=== PATIENT | female | born 1990 | race Caucasian/White ===

== ENCOUNTER 2023-08-27 09:42 | Emergency (ER) | payer MEDICAID, OTHER ==
[~2023-08-27] VITALS: Ht 170.2 cm; Wt 124.2 kg
[~2023-08-27 09:42] MED LIST: ACET-3385 PO; ASPI-1444 PO; ATOR40TA71 PO; DEXA2 PO; LEVE500T8 PO; LEVO125 PO; MECL-226 PO; METO50 PO; ONDA4TAB96 SL
[2023-08-27] MEDS ORDERED: VECURONIUM BROMIDE 10 MG/VIAL IV ONE (09:43)
[2023-08-27] MEDS ORDERED: ETOMIDATE 2 MG/ML 10 ML VIAL IV ONE (09:43)
[2023-08-27 09:52] VITALS: TEMP 98
[2023-08-27] MEDS: DEXAMETHASONE SOD PHOS 4 MG/ML 5 ML VIAL IVP ONE (10:43)
[2023-08-27] MEDS: OXYGEN THERAPY IH SCH (10:43)
[2023-08-27] MEDS: LevETIRAcetam 1,000 MG in DEXTROSE 5%-WATER 100 ML IV ONE (10:49)
[2023-08-27] MEDS ORDERED: IOHEXOL 350 MG/ML 100 ML VIAL ONE (10:57)
[2023-08-27] MEDS ORDERED: SODIUM CHLORIDE 0.9% 100 ML ONE (10:57)
[2023-08-27] MEDS ORDERED: ROCURONIUM BROMIDE 10 MG/ML 5 ML VIAL ONE (11:20)
[2023-08-27] MEDS ORDERED: PROPOFOL 1000 MG/ISO-OSM 100 ML ONE (11:30)
[2023-08-27 11:50] VITALS: PULSE 88; RESP 16; O2SAT 95
[2023-08-27 12:00] VITALS: PULSE 88; RESP 16; O2SAT 95
[2023-08-27 12:14] LABS: APPEARANCE,URINE CLEAR (CLEAR); BILIRUBIN,URINE NEGATIVE (NEGATIVE); COLOR,URINE LIGHT YELLOW (YELLOW); GLUCOSE, URINE (UA) NEGATIVE (NEGATIVE); KETONES,URINE NEGATIVE (NEGATIVE); LEUKOCYTE ESTERASE ,URINE NEGATIVE (NEGATIVE); NITRATE,URINE NEGATIVE (NEGATIVE); OCCULT BLOOD,URINE NEGATIVE (NEGATIVE); PROTEIN,URINE NEGATIVE (NEGATIVE); SPECIFIC GRAVITIY, URINE 1.026 (1.003-1.030); UROBILINOGEN,URINE <=1.0 mg/dL (<=1.0)
[2023-08-27] MEDS: PROPOFOL 1000 MG/ISO-OSM 100 ML IV PRN (12:14)
[2023-08-27 12:21] LABS: ALCOHOL, URINE DRUG SCREEN NEGATIVE (NEGATIVE); AMPHET/METH SCREEN,URINE NEGATIVE (NEGATIVE); BARBITURATE SCREEN, URINE NEGATIVE (NEGATIVE); BENZODIAZEPINES SCREEN,URINE POSITIVE (NEGATIVE); CANNABINOID SCREEN,URINE NEGATIVE (NEGATIVE); COCAINE SCREEN,URINE NEGATIVE (NEGATIVE); METHADONE SCREEN, URINE NEGATIVE (NEGATIVE); OPIATE SCREEN,URINE NEGATIVE (NEGATIVE); PHENCYCLIDINE SCREEN,URINE NEGATIVE (NEGATIVE)
[2023-08-27 12:22] LABS: BACTERIA,URINE None Seen /HPF (None Seen); RBC,URINE None Seen /HPF (0-2); WBC,URINE None Seen /HPF (0-5)
[2023-08-27] MEDS: MANNITOL 25%-12.5 GM/50 ML VIAL IVP ONE (12:32)
[2023-08-27 12:42] LABS: BASOPHILS % (AUTO) 0.2 % (0.0-2.0); EOSINOPHILS % (AUTO) 0 % (1.0-6.0); HEMOGLOBIN 14.4 g/dL (12.0-16.0); LYMPHOCYTES # (AUTO) 1.8 K/uL (1.0-4.8); LYMPHOCYTES % (AUTO) 11.8 % (22.0-44.0); MEAN CORPUSCULAR HEMOGLOBIN 29.5 pg (26.0-34.0); MEAN CORPUSCULAR HGB CONC 33.5 G/dL (31.0-37.0); MEAN CORPUSCULAR VOLUME 88 fL (80-100); MONOCYTES # (AUTO) 0.5 K/uL (0.1-1.0); NEUTROPHILS # (AUTO) 13.1 K/uL (1.8-7.7); PLATELET COUNT (AUTO) 187 K/uL (150-450); RED BLOOD CELL COUNT(AUTO) 4.89 MIL/uL (4.00-5.20); RED CELL DISTRIBUTION WIDTH 14.9 % (11.5-14.5); WHITE BLOOD COUNT (AUTO) 15.4 K/uL (4.5-11.0)
[2023-08-27 12:51] LABS: ANION GAP 8 mmol/L (8-16); CALCIUM, TOTAL 8.8 mg/dL (8.8-10.5); CARBON DIOXIDE 28 mmol/L (22-29); CHLORIDE 99 mmol/L (98-107); CREATININE 0.85 mg/dL (0.60-1.30); GLOMERULAR FILTR. RATE CALC > 60 mL/min (>60); GLUCOSE,RANDOM 165 mg/dL (70-110); POTASSIUM 3.9 mmol/L (3.5-5.1); SODIUM SERUM 135 mmol/L (136-145); UREA NITROGEN, BLOOD 14 mg/dL (7-18)
[2023-08-27 12:57] LABS: ALANINE AMINOTRANSFERASE 40 U/L (12-78); ALBUMIN 3.7 g/dL (3.4-5.0); ALKALINE PHOSPHATASE 85 U/L (46-116); ASPARTATE AMINOTRANSFERASE 33 U/L (15-37); BILIRUBIN,TOTAL 0.6 mg/dL (0.1-1.0); LIPASE 40 U/L (16-77); TOTAL PROTEIN, SERUM 7.6 g/dL (6.4-8.2)
[2023-08-27 12:59] LABS: AMMONIA 22 umol/L (11-32)
[2023-08-27 13:00] LABS: TROPONIN I-HIGH SENSITIVITY 55 ng/L (<51)
[2023-08-27] MEDS ORDERED: NiCARDipine HCL 25 MG in DEXTROSE 5%-WATER 240 ML IV PRN (13:00)
[2023-08-27] MEDS: LABETALOL HCL 5 MG/ML 20 ML VIAL IVP ONE ×2 (13:00→13:31)
[2023-08-27 13:11] LABS: LACTIC ACID 2.7 mmol/L (0.4-2.0)
[2023-08-27 13:12] LABS: ALCOHOL, BLOOD (SERUM) < 3 mg/dL (0-10)
[2023-08-27 13:14] LABS: B-TYPE NATRIURETIC PEPTIDE 9 pg/mL (0-100)
[2023-08-27] MEDS: VECURONIUM BROMIDE 10 MG/VIAL IVP ONE ×2 (13:25→15:46)
[2023-08-27 13:30] LABS: ABG BASE EXCESS -0.4 mmol/L (-2.0-3.0); ABG CARBOXYHEMOGLOBIN 0.4 % (0.0-1.5); ABG HCO3 24.2 mmol/L (22.0-26.0); ABG METHEMOGLOBIN 0.8 % (0.0-1.5); ABG OXYGEN CONTENT 21.8 mL/dL (15.0-23.0); ABG OXYGEN SATURATION 99.8 % (95.0-98.0); ABG OXYHEMOGLOBIN 98.6 % (94.0-100.0); ABG PCO2 41 mmHg (35-45); ABG PH 7.392 (7.350-7.450); ABG TOTAL HEMOGLOBIN 15.4 G/dL (12.0-18.0); PO2, ARTERIAL BG 230.5 mmHg (92.0-100.0); SOURCE, BLOOD GAS ARTERIAL
[2023-08-27 13:31] LABS: ALLEN TEST, BLOOD GAS POS; O2 DEVICE,BLOOD GAS VENTILATOR (ROOM AIR); SITE, BLOOD GAS RT RADIAL
[2023-08-27 13:32] LABS: PEEP,BG 5 cm H2O; VT, ABG 400 ml
[2023-08-27 13:34] LABS: COVID AG,FIA SOURCE NASAL SWAB
[2023-08-27 14:01] LABS: SARS-COV2 (COVID) ANTIGEN,FIA Negative (Negative)
[2023-08-27 15:07] VITALS: PULSE 90; RESP 18; O2SAT 99
[2023-08-27] MEDS ORDERED: GADOTERATE MEGLUMINE 10 MMOL/20 ML VIAL IVP ONE (15:32)
[2023-08-27 17:29] VITALS: PULSE 79; RESP 20; O2SAT 98
[2023-08-27 17:59] VITALS: BP 139/63; PULSE 104; RESP 16
[2023-08-27] MEDS ORDERED: PROPOFOL 1% 20 ML VIAL IVP ONE (18:45)
== END 2023-08-27 18:46 | disposition short-term general hospital (02) ==
LOC: EMS 09:42
DX: I61.9 Nontraumatic intracerebral hemorrhage, unspecified (principal); I63.9 Cerebral infarction, unspecified; I67.5 Moyamoya disease; I10 Essential (primary) hypertension; Z20.822 Contact with and (suspected) exposure to COVID-19
CPT/HCPCS: 99291; 70450; 70553; 31500; 96365; 71045; 96375; 96367; 87426; 80053; 81001; 82140; 83605; 83690; 83880; 84484; 84703; 85025; 85610; 87040; 82805; 36600; 74177; 99292; 93005; 51702; 96376; 80307; 36415; J0712; G0480; J1100; A9575; J3490 ×5; J2704; Q9967; J7060 ×2; J2150; J7050; 94002; 96366